=== PATIENT | female | born 1980 | race African-American/Black ===

== ENCOUNTER 2016-04-16 02:03 | Emergency (ER) | payer MEDICAID ==
[~2016-04-16] VITALS: Ht 170.2 cm; Wt 79.4 kg
[2016-04-16] MEDS ORDERED: ONDANSETRON HCL/PF 4 MG/2 ML VIAL ONE (04:26)
[2016-04-16] MEDS ORDERED: MORPHINE SULFATE INJ 4 MG/ML DISP.SYRIN ONE (04:26)
[2016-04-16] MEDS ORDERED: ONDANSETRON HCL/PF 4 MG/2 ML VIAL IVP ONE (04:30)
[2016-04-16] MEDS ORDERED: MORPHINE SULFATE INJ 2 MG/ML DISP.SYRIN IV ONE (04:30)
[2016-04-16 05:07] LABS: BASOPHILS % (AUTO) 0.2 % (0.0-2.0); DIFF TOTAL % 100 %; EOSINOPHILS # (AUTO) 0.1 /CMM (0.0-0.7); EOSINOPHILS % (AUTO) 1.2 % (0.0-6.0); HEMATOCRIT 38 % (33-45); HEMOGLOBIN 12.4 g/dL (11.5-14.8); LYMPHOCYTES # (AUTO) 1.7 /CMM (0.8-4.8); LYMPHOCYTES % (AUTO) 15.3 % (20.0-44.0); MEAN CORPUSCULAR HEMOGLOBIN 30 PG (26.0-33.0); MEAN CORPUSCULAR HGB CONC 33 g/dl (31.0-36.0); MEAN CORPUSCULAR VOLUME 90 fL (82-100); MONOCYTES # (AUTO) 0.4 /CMM (0.1-1.30); MONOCYTES % (AUTO) 3.6 % (2.0-12.0); NEUTROPHILS # (AUTO) 8.7 /CMM (1.8-8.9); NEUTROPHILS % (AUTO) 79.7 % (43.0-81.0); PLATELET COUNT (AUTO) 199 /CMM (150-450); RED BLOOD CELL COUNT(AUTO) 4.18 MIL/uL (4.0-5.2); WHITE BLOOD COUNT (AUTO) 10.9 K/uL (4.3-11.0)
[2016-04-16 05:08] LABS: KETONES,URINE 1+ (NEGATIVE); LEUKOCYTE ESTERASE ,URINE NEGATIVE (NEGATIVE)
[2016-04-16 05:15] LABS: CALCIUM, SERUM 9.1 mg/dL (8.5-10.1); CREATININE 0.8 mg/dL (0.6-1.3); POTASSIUM 3.5 mmol/L (3.5-5.1)
[2016-04-16 05:16] LABS: ADD UA MICROSCOPIC YES
[2016-04-16 05:20] LABS: PREGNANCY TEST URINE QUAL NEGATIVE (NEGATIVE)
[2016-04-16] MEDS ORDERED: IV NS 0.9% 250 ML IV ONE (05:20)
[2016-04-16] MEDS ORDERED: IOHEXOL-300 100 ML VIAL IV ONE (05:21)
[2016-04-16 05:22] LABS: ADD URINE CULTURE NO; MUCUS,URINE Many /LPF (None Seen); RBC,URINE NONE SEEN /HPF (0-2); WBC,URINE 0-2 /HPF (0-3)
[2016-04-16 06:41] VITALS: BP 116/87
== END 2016-04-16 06:42 | disposition home or self-care (01) ==
LOC: ER 02:03
DX: K61.0 Anal abscess (principal); Z88.6 Allergy status to analgesic agent; F17.210 Nicotine dependence, cigarettes, uncomplicated
CPT/HCPCS: 36415; 46050; 72193; 80048; 81001; 84703; 85025; 99285; A4606; A6402; A6407; J7050; Q9967; Z7610; 81000-TC; J2270; J2405

== ENCOUNTER 2016-05-03 09:34 | Emergency (ER) | payer MEDICAID ==
[~2016-05-03] VITALS: Ht 170.2 cm; Wt 81.6 kg
[2016-05-03 09:57] VITALS: BP 122/67
[2016-05-03] MEDS ORDERED: LET SOLN TOPICAL 8 ML UDC TP ONE ×2 (10:26→11:00)
[2016-05-03] MEDS ORDERED: LIDOCAINE VISCOUS 2% UD 15 ML UDC MM ONE (10:30)
== END 2016-05-03 11:35 | disposition home or self-care (01) ==
LOC: ER 09:35
DX: N75.0 Cyst of Bartholin's gland (principal); F17.200 Nicotine dependence, unspecified, uncomplicated; Z90.49 Acquired absence of other specified parts of digestive tract; Z88.6 Allergy status to analgesic agent
CPT/HCPCS: 56420; 99284; A4606; A6402; Z7610

== ENCOUNTER 2016-08-10 05:36 | Emergency (ER) | payer MEDICAID ==
[~2016-08-10] VITALS: Ht 170.2 cm; Wt 86.6 kg
--- NOTE | 2016-08-10 06:10 | NUR ---
To bed 7 a 36 yo female biself with c/o groin abscess x1 week. Afebrile. VSS. Gowned. Initiated comfort measures. Awaiting for er md dudley.
[2016-08-10] MEDS ORDERED: LET SOLN TOPICAL 8 ML UDC TP ONE ×2 (06:18→06:30)
[2016-08-10] MEDS ORDERED: LIDOCAINE HCL/PF 1% 30 ML SDV ONE (06:23)
[2016-08-10] MEDS ORDERED: LIDOCAINE /MPF 1% VIAL 5 ML VIAL IJ ONE (06:30)
[2016-08-10 07:35] VITALS: BP 133/88
--- NOTE | 2016-08-10 07:35 | NUR ---
Patient discharged to home in stable condition. Written and verbal after care instructions given. Patient verbalizes understanding of instruction.
== END 2016-08-10 07:36 | disposition home or self-care (01) ==
LOC: ER 05:36
DX: L02.214 Cutaneous abscess of groin (principal); Z88.6 Allergy status to analgesic agent; F17.210 Nicotine dependence, cigarettes, uncomplicated
CPT/HCPCS: 10060; 99283; A4606; J3490; Z7610